=== PATIENT | male | born 1955 | race Caucasian/White ===

== ENCOUNTER 2017-12-08 23:33 | Emergency (ER) | payer OTHER ==
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
== END 2017-12-09 01:25 | disposition home or self-care (01) ==
LOC: LB.ED 23:33 → EEVIPCON 23:33 → LB.ED 12-09 01:25
DX: T76.21XA Adult sexual abuse, suspected, initial encounter (principal); F10.929 Alcohol use, unspecified with intoxication, unspecified
CPT/HCPCS: 80307; 99284